=== PATIENT | male | born 1990 | race Caucasian/White ===

== ENCOUNTER 2017-02-24 15:38 | Emergency (ER) | payer SELFPAY ==
[~2017-02-24] VITALS: Ht 177.8 cm; Wt 60.1 kg
[2017-02-24 15:41] VITALS: TEMP 36.8; Ht 177.8 cm; Wt 60.1 kg
[2017-02-24] MEDS ORDERED: IBUPROFEN 600 MG TAB PO STA (15:50)
[2017-02-24] MEDS ORDERED: OXYCODONE/ACETAMINOPHEN 5-325 TAB PO STA (15:50)
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
[2017-02-24] MEDS ORDERED: OXYC-57 PO (16:12)
[2017-02-24 16:24] VITALS: BP 104/92; PULSE 74; O2SAT 97
== END 2017-02-24 16:26 | disposition home or self-care (01) ==
LOC: C.EDB 15:39 → C.EDD 16:26
DX: T22.211A Burn of second degree of right forearm, initial encounter (principal); X10.2XXA Contact with fats and cooking oils, initial encounter; Y92.009 Unspecified place in unspecified non-institutional (private) residence as the place of occurrence of the external cause; Y93.G3 Activity, cooking and baking; F41.9 Anxiety disorder, unspecified; F12.90 Cannabis use, unspecified, uncomplicated; Z87.891 Personal history of nicotine dependence